=== PATIENT | male | born 2000 | race African-American/Black ===

== ENCOUNTER 2021-05-27 15:00 | Emergency (ER) | payer BC, OTHER ==
[2021-05-27 15:36] VITALS: BP 136/75; PULSE 76; TEMP 99; BMI 24.3
== END 2021-05-27 17:20 | disposition home or self-care (01) ==
LOC: FER 15:00
PROC: 0HQ1XZZ Repair Face Skin, External Approach (ICD-10-PCS; principal; 2021-05-27)
DX: S01.511A Laceration without foreign body of lip, initial encounter (principal); Y04.0XXA Assault by unarmed brawl or fight, initial encounter
CPT/HCPCS: 12001-25; 99282-25

== ENCOUNTER 2021-06-05 18:30 | Emergency (ER) | payer BC ==
[2021-06-05 18:36] VITALS: BP 118/75; PULSE 78; TEMP 97.8; BMI 24.3
== END 2021-06-05 18:55 | disposition home or self-care (01) ==
LOC: FER 18:30
DX: Z48.02 Encounter for removal of sutures (principal)
CPT/HCPCS: 99281-25